=== PATIENT | female | born 1960 | race Caucasian/White ===

== ENCOUNTER 2018-08-11 12:51 | Outpatient (CLI) | payer OTHER | END 2018-08-11 12:52 | disposition home or self-care (01) | LOC: BICMAMMO 12:51 | PROVIDERS: ATTEND Internal Medicine | DX: Z12.31 Encounter for screening mammogram for malignant neoplasm of breast (principal); Z80.3 Family history of malignant neoplasm of breast | CPT/HCPCS: 77063; 77067 ==

== ENCOUNTER 2019-08-19 14:22 | Outpatient (CLI) | payer OTHER ==
--- NOTE | 2019-08-19 14:47 | MMO ---
Bilateral MAMMO Bilat Screen [facility]. CLINICAL HISTORY: Patient is 59 years old and is seen for screening. The patient has the following family history of breast cancer: sister, at age 35. The patient has no personal history of cancer. VIEWS: The views performed were: bilateral craniocaudal with tomosynthesis and bilateral mediolateral oblique with tomosynthesis. FILMS COMPARED: The present examination has been compared to prior imaging studies performed at [facility] on 06/02/2015, 06/06/2016, 07/08/2017 and 08/11/2018. This study has been interpreted with the assistance of computer-aided detection. MAMMOGRAM FINDINGS: There are scattered fibroglandular densities. There are stable benign appearing calcifications seen in both breasts. There are no suspicious masses, suspicious calcifications, or new areas of architectural distortion. IMPRESSION: THERE IS NO MAMMOGRAPHIC EVIDENCE OF MALIGNANCY. A ROUTINE FOLLOW-UP MAMMOGRAM IN 1 YEAR IS RECOMMENDED. THE RESULTS OF THIS EXAM WERE SENT TO THE PATIENT. ACR BI-RADS Category 2 - Benign finding MAMMOGRAPHY NOTE: 1. A negative mammogram report should not delay a biopsy if a dominant of clinically suspicious mass is present. 2. Approximately 10% to 15% of breast cancers are not detected by mammography. 3. Adenosis and dense breasts may obscure an underlying neoplasm. Reported by: CLARA LEI MD Electonically Signed: [id number]
== END 2019-08-19 14:23 | disposition home or self-care (01) ==
LOC: BICMAMMO 14:22
PROVIDERS: ATTEND Internal Medicine
DX: Z12.31 Encounter for screening mammogram for malignant neoplasm of breast (principal); Z80.3 Family history of malignant neoplasm of breast
CPT/HCPCS: 77063; 77067

== ENCOUNTER 2020-07-13 09:11 | Outpatient (CLI) | payer OTHER ==
--- NOTE | 2020-07-13 13:15 | NM ---
Exam: Nuclear medicine whole body bone scan HISTORY: Right renal neoplasm TECHNIQUE: Patient was administered 33 mCi of technetium 99m MDP intravenously. After 3 hour delay, w hole body imaging is performed FINDINGS: Uptake in the paranasal sinuses likely due to sinus disease. Small focal area of uptake in the right maxilla facial bones is nonspecific. Uptake in the left and right shoulder, left and right knee and left and right ankle/feet is felt to b e due to degenerative change There is no scintigraphic evidence of osseous metastases Asymmetric accumulation of radiotracer in the right kidney, likely due to deformity the collecting sy stem secondary to known neoplasm. IMPRESSION: No scintigraphic evidence of osseous metastases.
== END 2020-07-13 09:12 | disposition home or self-care (01) ==
LOC: NM 09:11
PROVIDERS: ATTEND Urology
DX: C64.1 Malignant neoplasm of right kidney, except renal pelvis (principal)
CPT/HCPCS: 78306; A9503

== ENCOUNTER 2020-07-25 08:18 | Outpatient (CLI) | payer OTHER ==
--- NOTE | 2020-07-26 09:05 | EKG ---
Test Reason : PREOP Blood Pressure : / mmHG Vent. Rate : 063 BPM Atrial Rate : 063 BPM P-R Int : 206 ms QRS Dur : 104 ms QT Int : 422 ms P-R-T Axes : 062 -53 032 degrees QTc Int : 431 ms Normal sinus rhythm Left anterior fascicular block Nonspecific T wave abnormality Abnormal ECG No previous ECGs available Confirmed by DR. Shanna PHAM ([id number]) on 07/26/2020 9:05:28 AM Referred By: KULWANT Confirmed By:DR. Shanna PHAM
== END 2020-07-25 08:19 | disposition home or self-care (01) ==
LOC: LABBT 08:18
PROVIDERS: ATTEND Urology
DX: Z01.810 Encounter for preprocedural cardiovascular examination (principal); C64.1 Malignant neoplasm of right kidney, except renal pelvis
CPT/HCPCS: 93005; 93010

== ENCOUNTER 2020-07-25 13:00 | Inpatient (IN) | payer OTHER ==
[2020-07-25 16:55] LABS: Hemoglobin 13.7 g/dL (12.0-16.0); Mean Corpuscular HGB CONC 33.2 g/dL (32.0-36.0); Mean Corpuscular Hemoglobin 27.7 pg (27.0-31.0); Mean Corpuscular Volume 83.4 fL (78.0-98.0); Mean Platelet Volume 7.6 fL (7.4-10.4); Platelet Count 150 thou/uL (130-400); RBC Distribution Width 13.3 % (11.5-14.5); Red Blood Cell (RBC) Count 4.96 mill/uL (4.20-5.40); White Blood Cell (WBC) Count 5.8 thou/uL (4.8-10.8)
[2020-07-25 16:58] LABS: INR-International Normal Ratio 0.9; PTT 28.7 sec (22.9-36.1); Prothrombin Time 12.1 sec (12.0-14.7)
[2020-07-25 17:04] LABS: Bacteria/HPF None Seen HPF (None Seen); Bilirubin Negative (Negative); Blood, Urine Negative (Negative); Clarity Clear (Clear); Glucose, Urine (Dipstick) Normal (Negative); Ketone, Urine Negative (Negative); Leukocyte 250 Leu/uL (Negative); Nitrite Negative (Negative); Protein, Urine (Dipstick) Negative (Neg-Trace); RBC/HPF 0-3 HPF (0-3); Specific Gravity, Urine 1.013 (1.002-1.036); Squamous Epithelial None Seen HPF (0-3); Urobilinogen Normal mg/dL (Less than 2); WBC/HPF 21-50 HPF (0-3); pH, Urine 5.5 (5.0-9.0)
[2020-07-25 18:10] LABS: Anion Gap 14 mmol/L (10-20); BUN (Urea Nitrogen) 10 mg/dL (9.8-20.1); Calc. Creatinine Clearance 0 mL/min (70-130); Calcium 9.2 mg/dL (7.8-10.44); Carbon Dioxide 26 mmol/L (23-31); Chloride 105 mmol/L (98-107); Estimated GFR-MDRD 74; Glucose 93 mg/dL (80-115); Potassium 3.6 mmol/L (3.5-5.1); Sodium 141 mmol/L (136-145)
[2020-07-26 12:03] LABS: SARS-CoV-2 MS2 Positive; SARS-CoV-2 N Gene Negative; SARS-CoV-2 S Gene Negative; SARS-CoV-2 by NAA Not Detected (NotDetected); SARS-CoV-2 orf1ab Negative
[2020-07-27 14:20] VITALS: BMI 33.6
[2020-07-28] MEDS ORDERED: Fentanyl 250 MCG/5 ML VIAL ONE (06:37)
[2020-07-28] MEDS ORDERED: Bupivacaine 0.25% HCL 30 ML VIAL ONE (06:37)
[2020-07-28] MEDS ORDERED: Levofloxacin 500 mg/D5W 100 ml Premix Bag ONE (06:48)
[2020-07-28] MEDS ORDERED: Bacitracin Zinc Ointment 30 gm TUBE ONE (06:49)
[2020-07-28] MEDS ORDERED: Midazolam HCl 2 mg/2 ml Vial ONE (07:03)
[2020-07-28] MEDS ORDERED: Fentanyl 100 MCG/2 ML VIAL ONE ×2 (07:03→09:52)
[2020-07-28] MEDS ORDERED: Naloxone HCl 0.4 mg/ml Vial IVP PRN (07:45)
[2020-07-28] MEDS ORDERED: Promethazine HCl 25 MG SUPP PR PRN (07:45)
[2020-07-28] MEDS ORDERED: Bupivacaine 0.25% 10 ML VIAL EPIDURAL PRN (07:45)
[2020-07-28] MEDS ORDERED: diphenhydrAMINE 25 MG CAP PO PRN (07:45)
[2020-07-28] MEDS ORDERED: Hydrocerin (Eucerin) Cream 120 gm Jar TOP PRN (07:45)
[2020-07-28] MEDS ORDERED: Ondansetron PF 4 MG/2 ML Vial IVP PRN (07:45)
[2020-07-28] MEDS ORDERED: Zolpidem Tartrate 5 MG TAB PO PRN (07:45)
[2020-07-28] MEDS ORDERED: HYDROcodone/Acetaminophen 5/325 mg Tablet PO PRN ×2 (07:45)
[2020-07-28] MEDS ORDERED: Promethazine HCl 25 MG/ML VIAL IM PRN ×2 (07:45→09:54)
[2020-07-28] MEDS ORDERED: diphenhydrAMINE 50 MG/ML VIAL IVP PRN (07:45)
[2020-07-28] MEDS ORDERED: Naloxone HCl 0.4 mg/ml Vial IV PRN (07:45)
[2020-07-28] MEDS ORDERED: diphenhydrAMINE 50 MG/ML VIAL IM PRN (07:45)
[2020-07-28] MEDS ORDERED: SUGAMMADEX SODIUM 200 MG/2 ML VIAL ONE (09:36)
[2020-07-28] MEDS ORDERED: Ondansetron HCl/PF 4 MG/2 ML Vial IVP PRN (09:54)
[2020-07-28] MEDS ORDERED: Promethazine HCl 25 MG/ML VIAL SLOW IVP PRN (09:54)
--- NOTE | 2020-07-28 10:34 | OP ---
DATE OF PROCEDURE: 07/28/2020 SERVICE: Urology. PROJECT LANDSCAPE ARCHITECT: Bam Quispe MD PREOPERATIVE DIAGNOSIS: Right renal mass. POSTOPERATIVE DIAGNOSIS: Right renal mass. PROCEDURE PERFORMED: Right open radical nephrectomy in the subcostal approach. INDICATION FOR PROCEDURE: Ms. Baltazar is a 60-year-old white female who presented to me as a referral from Dr. Bal Hamm who diagnosed her on CT with a large a 9 cm lower pole right renal mass. The mass occupied almost 50% of her kidney and this was not a very good candidate for nephron sparing surgery given the size of the tumor and the amount of kidney involved. Metastatic workup was negative and I recommended radical nephrectomy is the best treatment approach. Risks and benefits of the surgery were discussed and she has agreed to proceed. DESCRIPTION OF PROCEDURE: After identification of armband and verification of consent, the patient was brought back to the operating room, where she underwent general anesthesia with endotracheal intubation. She had an epidural placed preoperatively. She was left in the supine position with the bed slightly flexed and prepped and draped in usual sterile fashion. After appropriate time-out, an incision was made below the costal margin approximately 2 to 3 cm below the costal margin on the right side starting at the xiphoid over to the right flank. Dissection was carried down with Bovie electrocautery until the external oblique aponeurosis was identified. This was divided using Bovie electrocautery and then the muscle bellies were also divided, cauterizing any bleeders that may be encountered. The peritoneum was entered just anterior to the liver and distal stomach using sharp dissection and then the peritoneum opened using Bovie electrocautery, protecting the bowel contents underneath. Once the peritoneum was entered, inspection revealed multiple adhesions throughout the abdomen, which were taken down either with sharp dissection or cautery. The hepatic flexure was taken down and the right hemicolon was mobilized medially to enter retroperitoneal space. The [place] was then assembled for retraction. The duodenum was dissected free over the vena cava and mobilized medially under a retractor. The liver was also retracted anteriorly. The gallbladder appeared grossly normal. Once the kidney could be identified, the vena cava was identified and dissection started out laterally on the kidney to the lower pole where the gonadal vein and ureter identified, these were both controlled with clips and the LigaSure and divided. The superior pole was dissected just along the edge of the kidney since the superior kidney was grossly normal. There was no need from my standpoint to take the adrenal gland. Therefore, dissection was done directly adjacent to the renal parenchyma, but making sure to ensure that there was plenty of Gerota fat and Gerota fascia intact over the lower pole where the tumor was located. Dissection was then carried out posteriorly as until the only point of attachment was the renal hilum. There were 2 veins and 2 arteries identified as consistent with preoperative imaging. Using 2 separate staple loads with a 60 cm vascular loaded stapler, each renal hilum segment was stapled and controlled using the vascular stapler. A total of 3 loads were used to divide the 2 renal hilum and some additional tissue, which was unclear whether or not there was any vasculature located there. The posterior aspect of Gerota fascia was then completely finished to be divided with the LigaSure device and once this was accomplished, the kidney was completely freed out. This was then deposited into the specimen bucket for pathologic evaluation at a later time. Some additional Gerota fascia was removed on the posterior aspect of the renal fossa and sent off with the specimen. Gross inspection of the nephric space did not demonstrate any bleeding. The cable looked good and the hilum did not demonstrate any bleeding. The adrenal gland was still intact in the perinephric fat on the superior aspect of the kidney where the kidney was located. The peritoneum was washed out thoroughly with warm water and evacuated out. FloSeal was applied along the renal hilum and at the base where the adrenal gland was and then a Surgicel applied over this. The duodenum and colon were then put back into their original location. The fascia was then closed in 2 layers using the peritoneum and internal oblique in the first layer and the external oblique aponeurosis in the second layer. Juan was applied in the fatty space and subcutaneous tissues, and then the skin closed with surgical staplers. [place] dressing was applied. The patient was then taken out of positioning, awakened, taken to PACU for recovery in stable condition. COMPLICATIONS: None. ESTIMATED BLOOD LOSS: 150 mL. RETAINED TUBES AND DRAINS: A 16-Armenian Gatica catheter and Epidural. SPECIMENS: Right kidney and proximal ureter. DISPOSITION: The patient will be admitted to the hospital for postoperative recovery. Once all the lines and tubes were removed, she will be discharged home for finalization of recovery and we can start surveillance thereafter. Job ID: [id number]
[2020-07-28 10:46] LABS: Hemoglobin 12.6 g/dL (12.0-16.0); Mean Corpuscular HGB CONC 32.6 g/dL (32.0-36.0); Mean Corpuscular Hemoglobin 27.1 pg (27.0-31.0); Mean Corpuscular Volume 83.1 fL (78.0-98.0); Mean Platelet Volume 7.6 fL (7.4-10.4); Platelet Count 137 thou/uL (130-400); RBC Distribution Width 13.2 % (11.5-14.5); Red Blood Cell (RBC) Count 4.65 mill/uL (4.20-5.40); White Blood Cell (WBC) Count 8.7 thou/uL (4.8-10.8)
[2020-07-28 11:12] LABS: Anion Gap 11 mmol/L (10-20); BUN (Urea Nitrogen) 12 mg/dL (9.8-20.1); Calc. Creatinine Clearance 112 mL/min (70-130); Carbon Dioxide 24 mmol/L (23-31); Chloride 108 mmol/L (98-107); Estimated GFR-MDRD 72; Glucose 127 mg/dL (80-115); Potassium 3.6 mmol/L (3.5-5.1); Sodium 139 mmol/L (136-145)
[2020-07-28] MEDS ORDERED: hydrALAZINE 20 MG/ML VIAL SLOW IVP PRN (11:54)
[2020-07-28] MEDS ORDERED: Bisacodyl 10 MG SUPP PR PRN (11:54)
[2020-07-28] MEDS ORDERED: Mag-Al 1200 mg/1200 mg/30 ML UDCUP PO PRN (11:54)
[2020-07-28] MEDS ORDERED: Lidocaine 1% PF 5 ML VIAL ONE (12:35)
[2020-07-28] MEDS ORDERED: PROPOFOL 200 MG/20 ML VIAL ONE (12:35)
[2020-07-28] MEDS ORDERED: Dexamethasone 20 MG/5 ML VIAL ONE (12:35)
[2020-07-28] MEDS ORDERED: Rocuronium Bromide 10 MG/ML (10ML VIAL) ONE (12:35)
[2020-07-28] MEDS ORDERED: Glycopyrrolate 0.2 MG/ML 5 ML SYRINGE ONE (12:35)
[2020-07-28] MEDS ORDERED: EPHEDRINE 25 MG/5 ML SYRINGE ONE (12:35)
[2020-07-28] MEDS ORDERED: Lidocaine 1.5% w/Epi 1:200K 30 ML VIAL (Epid Use) ONE (12:35)
[2020-07-28] MEDS ORDERED: Ondansetron PF 4 MG/2 ML Vial ONE (12:35)
[2020-07-28] MEDS ORDERED: PHENYLEPHRINE-NS 100 MCG/ML 10 ML SYRINGE ONE (12:35)
--- NOTE | 2020-07-28 13:15 | RAD ---
RADIOGRAPH CHEST 1 VIEW: DATE: 07/28/2020 TIME: 10:35 AM HISTORY: 60-year-old female with right chest pain. Evaluate for right-sided pneumothorax. COMPARISON: 06/16/2020 FINDINGS: There is a new transversely oriented linear border at the right apex on one of the 2 AP views. Uncertain whether this is a skinfold or a tiny apical pneumothorax. Mild streaky density at base of left lower lobe, subsegmental atelectasis, new since prior study. No cardiomegaly No consolidation or pulmonary edema Bilateral lateral costophrenic angles are sharp. Ectasia and tortuosity thoracic aorta. IMPRESSION: Questionable tiny right apical pneumothorax versus skinfold. Recommend follow-up.
[2020-07-28] MEDS: ceFAZolin 1 GM/D5W 1 GM in Premix Bag 1 BAG IVPB SCH ×2 (14:54→23:33)
[2020-07-28] MEDS: Rosuvastatin 20 MG TAB PO SCH (21:01)
[2020-07-28] MEDS: Docusate 100 MG CAP PO SCH (21:01)
[2020-07-29] MEDS: fentaNYL Citrate/PF 500 MCG, Bupivacaine 10 ML in Sodium Chloride 0.9% 80 ML EPIDURAL SCH ×2 (02:22→14:30)
[2020-07-29 05:31] LABS: #Lymphocytes 1.1 thou/uL (1.20-3.40); #Monocytes 0.8 thou/uL (0.11-0.59); #Neutrophils 8.3 thou/uL (1.40-6.50); %Basophils 0.4 % (0.0-1.0); %Eosinophils 0.1 % (0.0-10.0); %Lymphocytes 10.8 % (21.0-51.0); %Monocytes 7.7 % (0.0-10.0); %Neutrophils 81.1 % (42.0-75.0); Hemoglobin 11.5 g/dL (12.0-16.0); Mean Corpuscular Hemoglobin 27.2 pg (27.0-31.0); Mean Corpuscular Volume 82.5 fL (78.0-98.0); Mean Platelet Volume 7.7 fL (7.4-10.4); Platelet Count 141 thou/uL (130-400); RBC Distribution Width 13.1 % (11.5-14.5); Red Blood Cell (RBC) Count 4.24 mill/uL (4.20-5.40); White Blood Cell (WBC) Count 10.3 thou/uL (4.8-10.8)
[2020-07-29 05:39] LABS: Anion Gap 11 mmol/L (10-20); BUN (Urea Nitrogen) 13 mg/dL (9.8-20.1); Calc. Creatinine Clearance 86 mL/min (70-130); Calcium 8.2 mg/dL (7.8-10.44); Carbon Dioxide 21 mmol/L (23-31); Chloride 108 mmol/L (98-107); Estimated GFR-MDRD 53; Glucose 105 mg/dL (80-115); Potassium 4.4 mmol/L (3.5-5.1); Sodium 136 mmol/L (136-145)
[2020-07-29] MEDS: ceFAZolin 1 GM/D5W 1 GM in Premix Bag 1 BAG IVPB SCH (06:03)
--- NOTE | 2020-07-29 08:09 | RAD ---
Exam: Chest one view HISTORY:Evaluate for pneumothorax Comparison: 07/28/2020 FINDINGS: Cardiac silhouette: Normal Aorta: Unremarkable Pulmonary vessels: Normal Costophrenic angles: Clear LUNGS: Stable linear densities in the left lower lobe may represent some segmental atelectasis. Pneumothorax: Previously suggested tiny right apical pneumothorax is not evident on the current exami nation. Osseous abnormalities: None IMPRESSION: 1. Stable subsegmental atelectasis in the left lower lobe 2. Previously noted tiny right apical pneumothorax is not evident on the current exam.
[2020-07-29] MEDS ORDERED: FLU VACC QS2020-21(6MOS UP)/PF 60 MCG/0.5 ML SYRINGE IM ONE (09:00)
[2020-07-29] MEDS: Docusate 100 MG CAP PO SCH ×2 (09:29→20:17)
[2020-07-29] MEDS: Acetaminophen 325 MG TAB PO PRN (09:42)
--- NOTE | 2020-07-29 16:13 | PRG ---
DATE OF SERVICE: 07/29/2020 SUBJECTIVE: The patient states she is feeling very good. Her pain is minimal. She has been advanced to a regular diet and states she is tolerating it well without nausea or vomiting. She gotten up and sat in a chair, although she has not walked today. She denies any chest pain or shortness of breath. Her chest x-ray yesterday demonstrated a possible pneumothorax and was repeated again today. OBJECTIVE: VITAL SIGNS: Temperature 97.9, pulse 54, respirations 14, blood pressure 90/58, saturation 98% on room air. GENERAL: No apparent distress. Communicative, alert. CARDIOVASCULAR: Regular rate and rhythm. ABDOMEN: Soft, nontender, nondistended. Incision dressed with a small amount of blood spotting at the lateral aspect. : Gatica catheter in place. Clear. EXTREMITIES: No edema. LABORATORY EVALUATION: Full set of labs are in the [facility] system, which I have reviewed. Of note, the patient's hemoglobin is 11.5, which is roughly stable. Creatinine is 1.06. IMAGING STUDIES: Chest x-ray today demonstrates no evidence of pneumothorax, and some atelectasis. ASSESSMENT AND PLAN: A 60-year-old white female, status post right open radical nephrectomy via the subcostal approach postop day 1, recovering quite well. Would recommend slowly decreasing the dose of epidural either today or tomorrow morning. We will plan for epidural removal tomorrow, so long as she tolerates the lower dose without any significant pain and transitioned to oral pain medication. Once her epidural is out, we can remove her Gatica catheter. I recommended she attempt some light walking today with assistance given that she may have significant leg weakness from her epidural. Continue incentive spirometer. We will start Lovenox prophylaxis today. Continue regular diet. I will continue to follow over the weekend. Job ID: [id number]
[2020-07-29] MEDS ORDERED: Loratadine 10 MG TAB PO PRN (17:48)
[2020-07-29] MEDS: Enoxaparin Sodium 40 MG/0.4 ML SYRINGE SC SCH (20:17)
[2020-07-29] MEDS: Rosuvastatin 20 MG TAB PO SCH (20:17)
[2020-07-30] MEDS: fentaNYL Citrate/PF 500 MCG, Bupivacaine 10 ML in Sodium Chloride 0.9% 80 ML EPIDURAL SCH (03:31)
[2020-07-30 05:56] LABS: Anion Gap 9 mmol/L (10-20); BUN (Urea Nitrogen) 14 mg/dL (9.8-20.1); Calc. Creatinine Clearance 90 mL/min (70-130); Carbon Dioxide 24 mmol/L (23-31); Chloride 107 mmol/L (98-107); Estimated GFR-MDRD 56; Glucose 88 mg/dL (80-115); Potassium 4.2 mmol/L (3.5-5.1); Sodium 136 mmol/L (136-145)
[2020-07-30 06:03] LABS: #Eosinphils 0.1 thou/uL (0.0-0.7); #Lymphocytes 1.3 thou/uL (1.20-3.40); #Monocytes 0.6 thou/uL (0.11-0.59); #Neutrophils 4.8 thou/uL (1.40-6.50); %Basophils 0.5 % (0.0-1.0); %Eosinophils 1.1 % (0.0-10.0); %Lymphocytes 18.7 % (21.0-51.0); %Monocytes 9.2 % (0.0-10.0); %Neutrophils 70.6 % (42.0-75.0); Band 2 % (5-11); Hemoglobin 11.2 g/dL (12.0-16.0); Lymphocytes 10 % (21-51); MDiff Complete? YES; Mean Corpuscular HGB CONC 33.2 g/dL (32.0-36.0); Mean Corpuscular Hemoglobin 27.4 pg (27.0-31.0); Mean Corpuscular Volume 82.6 fL (78.0-98.0); Mean Platelet Volume 7.8 fL (7.4-10.4); Monocytes 5 % (0-10); Neutrophil 83 % (42-75); Platelet Count 113 thou/uL (130-400); Platelet Morphology Comment Appears Decreased; RBC Distribution Width 13.4 % (11.5-14.5); RBC Morphology Normal; Red Blood Cell (RBC) Count 4.08 mill/uL (4.20-5.40); White Blood Cell (WBC) Count 6.8 thou/uL (4.8-10.8)
[2020-07-30] MEDS: Docusate 100 MG CAP PO SCH ×2 (10:11→20:38)
[2020-07-30] MEDS: Acetaminophen 325 MG TAB PO PRN (10:57)
--- NOTE | 2020-07-30 12:55 | PRG ---
DATE OF SERVICE: 07/30/2020 SUBJECTIVE: The patient states she is feeling good. She has no pain. She has been up walking around and has walked seven times yesterday. She is tolerating a regular diet. She complains that she has not had a bowel movement yet. She also wants to take a shower. OBJECTIVE: VITAL SIGNS: Temperature 98.8, pulse 65, respirations 16, blood pressure 117/75, saturation 93% on room air. GENERAL: No apparent distress. Communicative, alert. CARDIOVASCULAR: Regular rate and rhythm. CHEST: Nonlabored. ABDOMEN: Soft, nontender, nondistended. Dressing was removed today. Incision is slightly damp, but otherwise clean and intact without evidence of infection or hernia. [place] all are intact. : Gatica catheter in place with clear yellow urine. BACK: Epidural in place in good location. EXTREMITIES: No edema. LABORATORY EVALUATION: Full set of labs are in the [employer] system, which I have reviewed. Of note, the patient's hemoglobin is 11.2 with white count of 6.8. Creatinine is 1.01. ASSESSMENT AND PLAN: 60-year-old white female with a large right renal tumor, status post right radical nephrectomy, postop day 2. Her dressing has been removed today. I would recommend titrating her epidural down to 4 mcg an hour, and if she tolerates that well, the epidural can be removed today. Once her epidural was removed, her Gatica catheter can also be removed. At that point, the patient can begin showering. I have encouraged her to start using oral pain medication for any discomfort that she starts to experience with the epidural being turned down. She will continue her Lovenox in the evenings, which should be well enough away from her epidural removal. I will start her on MiraLAX for constipation. She should continue her incentive spirometer and continue ambulation. Job ID: [id number]
[2020-07-30] MEDS: Polyethylene Glycol 3350 17 GM Packet PO SCH (13:43)
[2020-07-30] MEDS: traMADol HCl 50 MG TAB PO PRN ×2 (13:43→20:39)
[2020-07-30] MEDS: Rosuvastatin 20 MG TAB PO SCH (20:38)
[2020-07-30] MEDS: Enoxaparin Sodium 40 MG/0.4 ML SYRINGE SC SCH (20:39)
[2020-07-31] MEDS: traMADol HCl 50 MG TAB PO PRN ×2 (03:28→20:11)
[2020-07-31 06:03] LABS: #Eosinphils 0.1 thou/uL (0.0-0.7); #Monocytes 0.7 thou/uL (0.11-0.59); #Neutrophils 4.4 thou/uL (1.40-6.50); %Basophils 0.3 % (0.0-1.0); %Eosinophils 2.2 % (0.0-10.0); %Lymphocytes 15.9 % (21.0-51.0); %Monocytes 10.9 % (0.0-10.0); %Neutrophils 70.6 % (42.0-75.0); Hemoglobin 11.6 g/dL (12.0-16.0); Mean Corpuscular HGB CONC 33.5 g/dL (32.0-36.0); Mean Corpuscular Hemoglobin 27.5 pg (27.0-31.0); Mean Corpuscular Volume 81.9 fL (78.0-98.0); Mean Platelet Volume 7.6 fL (7.4-10.4); Platelet Count 131 thou/uL (130-400); RBC Distribution Width 13.2 % (11.5-14.5); Red Blood Cell (RBC) Count 4.22 mill/uL (4.20-5.40); White Blood Cell (WBC) Count 6.2 thou/uL (4.8-10.8)
[2020-07-31 06:30] LABS: Anion Gap 9 mmol/L (10-20); BUN (Urea Nitrogen) 11 mg/dL (9.8-20.1); Calc. Creatinine Clearance 92 mL/min (70-130); Calcium 8.5 mg/dL (7.8-10.44); Carbon Dioxide 24 mmol/L (23-31); Chloride 105 mmol/L (98-107); Estimated GFR-MDRD 57; Glucose 80 mg/dL (80-115); Potassium 4.1 mmol/L (3.5-5.1); Sodium 134 mmol/L (136-145)
[2020-07-31] MEDS: Docusate 100 MG CAP PO SCH ×2 (08:58→20:11)
[2020-07-31] MEDS: Polyethylene Glycol 3350 17 GM Packet PO SCH (12:51)
--- NOTE | 2020-07-31 13:25 | PRG ---
DATE OF SERVICE: 07/31/2020 SUBJECTIVE: The patient states she is doing very well. Her epidural was removed yesterday. Her pain has been controlled with tramadol alone. She had her catheter removed and has been urinating. She has been ambulating and tolerating a diet. She is still a little concerned about her pain control on tramadol alone at home. OBJECTIVE: VITAL SIGNS: Temperature 97.6, pulse 51, respirations 16, blood pressure 121/74, saturation 95% on room air. GENERAL: No apparent distress, communicative and alert. CARDIOVASCULAR: Regular rate and rhythm. ABDOMEN: Soft, nontender, nondistended. Incision is clean, dry, and intact, healing well without evidence of infection or hernia. : Gatica catheter has been removed. EXTREMITIES: No clubbing, cyanosis or edema. LABORATORY EVALUATION: The full set of labs are in the [facility] [facility] system which I have reviewed. Of note, the patient's white count is 6.2, hemoglobin of 11.6. Creatinine of 0.99. ASSESSMENT AND PLAN: A 60-year-old white female with a large right renal mass, status post subcostal open nephrectomy, postoperative day 3, doing extremely well. I think she could potentially go home today, although she is a little hesitant because of questions of whether or not she will keep her pain under control. I think it is extremely reasonable for her to be monitored for 24 hours on p.o. pain control to ensure that she is doing okay. As such, we will plan for discharge tomorrow morning so long as her pain is adequately controlled the course of today and tonight. If she does so and does well with this, then I think she can be discharged in the morning on p.o. pain control. Everything else on her lab profile and all of other requirements have been met for discharge. Job ID: [id number]
[2020-07-31] MEDS: Rosuvastatin 20 MG TAB PO SCH (20:11)
[2020-07-31] MEDS: Enoxaparin Sodium 40 MG/0.4 ML SYRINGE SC SCH (20:11)
[2020-07-31] MEDS: Acetaminophen 325 MG TAB PO PRN (20:11)
[2020-08-01] MEDS: traMADol HCl 50 MG TAB PO PRN ×2 (02:41→09:47)
[2020-08-01 06:01] LABS: #Eosinphils 0.2 thou/uL (0.0-0.7); #Lymphocytes 1.2 thou/uL (1.20-3.40); #Monocytes 0.5 thou/uL (0.11-0.59); #Neutrophils 3.4 thou/uL (1.40-6.50); %Basophils 0.6 % (0.0-1.0); %Eosinophils 3.9 % (0.0-10.0); %Lymphocytes 22.1 % (21.0-51.0); %Monocytes 9.4 % (0.0-10.0); %Neutrophils 64.1 % (42.0-75.0); Mean Corpuscular HGB CONC 34.2 g/dL (32.0-36.0); Mean Corpuscular Hemoglobin 27.6 pg (27.0-31.0); Mean Corpuscular Volume 80.5 fL (78.0-98.0); Platelet Count 149 thou/uL (130-400); RBC Distribution Width 13.1 % (11.5-14.5); Red Blood Cell (RBC) Count 4.36 mill/uL (4.20-5.40); White Blood Cell (WBC) Count 5.4 thou/uL (4.8-10.8)
[2020-08-01 06:25] LABS: Anion Gap 11 mmol/L (10-20); BUN (Urea Nitrogen) 10 mg/dL (9.8-20.1); Calc. Creatinine Clearance 93 mL/min (70-130); Calcium 8.9 mg/dL (7.8-10.44); Carbon Dioxide 26 mmol/L (23-31); Chloride 103 mmol/L (98-107); Estimated GFR-MDRD 58; Glucose 79 mg/dL (80-115); Potassium 3.8 mmol/L (3.5-5.1); Sodium 136 mmol/L (136-145)
[2020-08-01] MEDS: Docusate 100 MG CAP PO SCH (08:30)
[2020-08-01 11:43] VITALS: BP 120/75; TEMP 97.8
--- NOTE | 2020-08-02 11:27 | DIS ---
DATE OF ADMISSION: 07/28/2020 DATE OF DISCHARGE: 08/01/2020 ADMITTING DIAGNOSIS: Right renal mass. POSTOPERATIVE DIAGNOSIS: Right renal cell carcinoma. PROCEDURE PERFORMED: Right subcostal open radical nephrectomy. BRIEF HISTORY: Ms. Baltazar is a 60-year-old white female, who initially presented to me as a referral from Dr. Bal Hamm regarding a large right renal mass measuring 9 cm. [employer] heard that given the size of the mass that radical nephrectomy would be the best treatment choice. We discussed various options and she elected to proceed with an open radical nephrectomy. She is now coming in for this surgery. The full H and P can be found in the scanned portion of the [facility] system. HOSPITAL COURSE: After her surgery (please see operative note for details), the patient was admitted to the surgical floor for postoperative recovery. She had an epidural as well as a Gatica catheter. She was advanced from a clear liquid diet to a regular diet by postoperative day 1. She tolerated a regular diet throughout her hospital stay. She was ambulating very early, sitting up in chair and postoperative day 0, as well as walking on postoperative day 1. Her epidural was able to be turned down by postoperative day 2 and then removed. She was on oral pain control by postoperative day 3. She elected to stay in the hospital for 23 hours to ensure that her pain was controlled on p.o. pain medication and then felt good enough to be discharged home on postoperative day 4. Her creatinine only went up to about 1.1 and then stabilized at 0.9, indicating that her other kidney is working well. Her hemoglobin remained stable around the 11 range. She was discharged home without any further issues. Her hydrochlorothiazide was held during her hospitalization given that she was a little hypotensive from her epidural. She was kept on her metoprolol for perioperative beta-blockade. DISPOSITION: Discharged to home. DISCHARGE CONDITION: Good. DISCHARGE MEDICATIONS: The patient should resume all of her home medications except the hydrochlorothiazide. I have asked her to remain off this until she sees her primary care doctor and there was evidence of recurrent hypertension, at which point she can go back on her medication. She should remain on her Toprol. She was given additional prescriptions for tramadol, [place], [place] for pain control. DISCHARGE INSTRUCTIONS: Were explained to the patient including when to call me and activity restrictions as well as bathing and driving restrictions. She will follow up with me in 2 weeks on August 10 for staple removal. Job ID: [id number]
== END 2020-08-01 14:00 | disposition home or self-care (01) | DRG 658 ==
LOC: SURG A 07-28 05:50 → EDSTATUS 07-28 13:00
PROVIDERS: ADMIT Urology; ATTEND Urology
PROC: 0TT00ZZ Resection of Right Kidney, Open Approach (ICD-10-PCS; principal; 2020-07-28)
DX: C64.1 Malignant neoplasm of right kidney, except renal pelvis (principal); I10 Essential (primary) hypertension; E78.5 Hyperlipidemia, unspecified; K59.00 Constipation, unspecified; I95.9 Hypotension, unspecified; Z20.828 Contact with and (suspected) exposure to other viral communicable diseases
CPT/HCPCS: 36415; 71045; 80048; 81001; 85025; 85027; 85610; 85730; 86850; 86900; 86901; 87086; 87635; 88307; 90471; 90662; 93005; G0008; J0690; J1100; J1650; J1956; J2001; J2250; J2405; J2704; J3010; J3490; S0020; U0003

== ENCOUNTER 2020-10-11 07:48 | Outpatient (CLI) | payer OTHER ==
--- NOTE | 2020-10-11 08:46 | MMO ---
Bilateral MAMMO Bilat Screen [facility]. CLINICAL HISTORY: Patient is 60 years old and is seen for screening. The patient has the following family history of breast cancer: sister, at age 35. The patient has no personal history of cancer. VIEWS: The views performed were: bilateral craniocaudal with tomosynthesis and bilateral mediolateral oblique with tomosynthesis. FILMS COMPARED: The present examination has been compared to prior imaging studies performed at [facility] on 06/06/2016, 07/08/2017, 08/11/2018 and 08/19/2019. This study has been interpreted with the assistance of computer-aided detection. MAMMOGRAM FINDINGS: There are scattered fibroglandular densities. There are stable benign appearing calcifications seen in both breasts. There are no suspicious masses, suspicious calcifications, or new areas of architectural distortion. IMPRESSION: THERE IS NO MAMMOGRAPHIC EVIDENCE OF MALIGNANCY. A ROUTINE FOLLOW-UP MAMMOGRAM IN 1 YEAR IS RECOMMENDED. THE RESULTS OF THIS EXAM WERE SENT TO THE PATIENT. ACR BI-RADS Category 2 - Benign finding MAMMOGRAPHY NOTE: 1. A negative mammogram report should not delay a biopsy if a dominant of clinically suspicious mass is present. 2. Approximately 10% to 15% of breast cancers are not detected by mammography. 3. Adenosis and dense breasts may obscure an underlying neoplasm. Reported by: MARILIA MILLER MD Electonically Signed: [id number]
== END 2020-10-11 07:49 | disposition home or self-care (01) ==
LOC: BICMAMMO 07:48
PROVIDERS: ATTEND Internal Medicine
DX: Z12.31 Encounter for screening mammogram for malignant neoplasm of breast (principal); Z80.3 Family history of malignant neoplasm of breast
CPT/HCPCS: 77063; 77067

== ENCOUNTER 2021-09-12 08:04 | Outpatient (CLI) | payer BC ==
[2021-09-12] MEDS ORDERED: Iopamidol-370 76% 500 ML 1 ML ONE (10:09)
== END 2021-09-12 08:05 | disposition home or self-care (01) ==
LOC: BICCT 08:04
PROVIDERS: ATTEND Urology
DX: C64.1 Malignant neoplasm of right kidney, except renal pelvis (principal); K76.89 Other specified diseases of liver; K44.9 Diaphragmatic hernia without obstruction or gangrene; Z90.5 Acquired absence of kidney
CPT/HCPCS: 74160; 82565; Q9967

== ENCOUNTER 2023-09-27 08:59 | Outpatient (CLI) | payer BC | END 2023-09-27 09:00 | disposition home or self-care (01) | LOC: BICCT 08:59 | PROVIDERS: ATTEND Urology | DX: C64.1 Malignant neoplasm of right kidney, except renal pelvis (principal) | CPT/HCPCS: 71046; 74160; 82565 ==

== ENCOUNTER 2023-12-11 11:26 | Outpatient (CLI) | payer BC | END 2023-12-11 11:27 | disposition home or self-care (01) | LOC: BICMAMMO 11:26 | PROVIDERS: ATTEND Internal Medicine | DX: Z12.31 Encounter for screening mammogram for malignant neoplasm of breast (principal); Z80.3 Family history of malignant neoplasm of breast | CPT/HCPCS: 77063; 77067 ==

== ENCOUNTER 2024-09-16 09:18 | Outpatient (CLI) | payer OTHER | END 2024-09-16 09:19 | disposition home or self-care (01) | LOC: BICCT 09:18 | PROVIDERS: ATTEND Urology | DX: C64.1 Malignant neoplasm of right kidney, except renal pelvis (principal); M47.816 Spondylosis without myelopathy or radiculopathy, lumbar region; R91.1 Solitary pulmonary nodule; K76.89 Other specified diseases of liver; Z90.5 Acquired absence of kidney | CPT/HCPCS: 36415; 71046; 72100; 74160; 82565 ==